=== PATIENT | female | born 1965 | race Caucasian/White ===

== ENCOUNTER 2024-06-26 13:33 | Emergency (ER) | payer OTHER, MEDICAID ==
[~2024-06-26] VITALS: Ht 162.6 cm; Wt 97.5 kg
[2024-06-26 13:50] VITALS: BP_SYST 124; PULSE 79; RESP 18; TEMP 97.7; O2SAT 99
[2024-06-26] MEDS ORDERED: CEPH250C PO (14:08)
[2024-06-26] MEDS: DIPHTH,PERTUSS(ACELL),TET VAC 0.5 ML VIAL (Tdap) I.M. ONE (14:43)
[2024-06-26 14:51] VITALS: BP_SYST 122; PULSE 68; RESP 16; TEMP 97.7; O2SAT 100
== END 2024-06-26 14:51 | disposition home or self-care (01) ==
LOC: SED 13:33
DX: S81.811A Laceration without foreign body, right lower leg, initial encounter (principal); W25.XXXA Contact with sharp glass, initial encounter; Y93.89 Activity, other specified; Y92.89 Other specified places as the place of occurrence of the external cause; Y99.8 Other external cause status
CPT/HCPCS: 90715; 99283